=== PATIENT | male | born 1965 | race American Indian/Alaskan Native ===

== ENCOUNTER 2017-04-02 18:57 | Emergency (ER) | payer BC ==
[2017-04-02 19:23] VITALS: BP 140/100; PULSE 86; TEMP 97.9; BMI 26.2
--- NOTE | 2017-04-02 19:27 | PDOC ---
Rapid Medical Evaluation Chief Complaint: Pain Time Seen by Provider: 04/02/17 19:20 Medical Evaluation: Allergies Allergy/AdvReac Type Severity Reaction Status Date / Time No Known Allergies Allergy Verified 03/04/13 12:17 04/02/17 19:21 Pt presents with complaint of : Send by Dr. lara right inguinal pain r/o hernia vs incarceration PMhx: HTN, Diabetes On brief exam:VSS, patient alert ox3. no abdominal tenderness I have ordered the following: cbc, cmp, type and screen, u/s Pt will go to the Emergency Dept for further workup 04/02/17 19:26
[2017-04-02 20:13] LABS: BASOPHIL 1.3 % (0-2.0); EOSINOPHIL 2.6 % (0-4.5); MCH 29.6 pg (25.7-33.7); MCHC 33.7 g/dl (32.0-35.9); MEAN CELL VOLUME 87.9 fl (80-96); MEAN PLT VOLUME 7.8 fl (7.5-11.1); PLATELET COUNT 278 K/MM3 (134-434); RDW 13.1 % (11.9-15.9); WHITE BLOOD COUNT 9.2 K/mm3 (4.0-10.0)
[2017-04-02 20:16] LABS: URINE APPEARANCE CLEAR; URINE BILIRUBIN NEGATIVE (NEGATIVE); URINE BLOOD NEGATIVE (NEGATIVE); URINE COLOR STRAW; URINE GLUCOSE (UA) NEGATIVE (NEGATIVE); URINE KETONE NEGATIVE (NEGATIVE); URINE NITRITE NEGATIVE (NEGATIVE); URINE UROBILINOGEN NEGATIVE mg/dL (0.2-1.0)
[2017-04-02 20:39] LABS: ALBUMIN 4.3 g/dl (3.4-5.0); ALK PHOS 99 U/L (45-117); ANION GAP 6 (8-16); BILIRUBIN,TOTAL 0.5 mg/dL (0.2-1.0); CALCIUM 9.2 mg/dL (8.5-10.1); CO2 29 mmol/L (21-32); CREATININE 0.9 mg/dL (0.7-1.3); GLUCOSE,RANDOM 144 mg/dL (74-106); SGOT/AST 23 U/L (15-37); SGPT/ALT 59 U/L (12-78); TOT PROT 7.9 g/dl (6.4-8.2)
[2017-04-02 20:46] LABS: URINE PROTEIN 1+ (NEGATIVE)
[2017-04-02 20:50] LABS: URINE RBC <1 /hpf (0-3); URINE WBC <1 /hpf (3-5)
--- NOTE | 2017-04-02 23:41 | PDOC ---
History of Present Illness <Eden Cooper - Last Filed: 04/03/17 00:36> - History of Present Illness Initial Comments: 04/03/17 00:20 51 M with h/o DM presents to ER with R groin pain x 5 days. Pt denies N/V/D. Denies F/C. States that the pain is constant, non-radiating. Pt denies surgical history. Denies pain in his scrotum. Has been taking PO without any abdominal distention. Having normal BMs. No dysuria. Pt was seen by Dr. Barnhart and sent to ER to r/o incarcerated hernia. <Akbar Alvarado - Last Filed: 04/03/17 01:06> - General Chief Complaint: Pain Stated Complaint: PCP SENT Time Seen by Provider: 04/02/17 19:20 Past History <Eden Cooper - Last Filed: 04/03/17 00:36> - Past Medical History COPD: No Diabetes: Yes GI Disorders: Yes (GAS) HTN: Yes - Suicide/Smoking/Psychosocial Hx Smoking Status: No Smoking History: Never smoked Have you smoked in the past 12 months: No Number of Cigarettes Smoked Daily: 0 Information on smoking cessation initiated: No Hx Alcohol Use: No Drug/Substance Use Hx: No <Akbar Alvarado - Last Filed: 04/03/17 01:06> - Past Medical History Allergies/Adverse Reactions: Allergies Allergy/AdvReac Type Severity Reaction Status Date / Time No Known Allergies Allergy Verified 04/02/17 21:11 Home Medications: Ambulatory Orders Losartan Potassium 50 mg PO DAILY 03/04/13 Metformin HCl [Glucophage -] 500 mg PO BID 03/04/13 Amlodipine Besylate [Norvasc -] 5 mg PO DAILY 04/02/17 Glipizide [Glipizide ER] 5 mg PO DAILY 04/02/17 Review of Systems - Review of Systems Comments:: 04/03/17 00:22 "GENERAL/CONSTITUTIONAL: No fever or chills. No weakness. HEAD, EYES, EARS, NOSE AND THROAT: No change in vision. No ear pain or discharge. No sore throat. CARDIOVASCULAR: No chest pain or shortness of breath. RESPIRATORY: No cough, wheezing, or hemoptysis. GASTROINTESTINAL: No nausea, vomiting, diarrhea or constipation. GENITOURINARY: +R groin pain, No dysuria, frequency, or change in urination. MUSCULOSKELETAL: No joint or muscle swelling or pain. No neck or back pain. SKIN: No rash NEUROLOGIC: No headache, vertigo, loss of consciousness, or change in strength/ sensation. ENDOCRINE: No increased thirst. No abnormal weight change. HEMATOLOGIC/LYMPHATIC: No anemia, easy bleeding, or history of blood clots. ALLERGIC/IMMUNOLOGIC: No hives or skin allergy. " <OuAkbar - Last Filed: 04/03/17 01:06> *Physical Exam - Vital Signs Last Vital Signs Temp Pulse Resp BP Pulse Ox 97.9 F 86 17 140/100 100 04/02/17 19:21 04/02/17 19:21 04/02/17 19:21 04/02/17 19:21 04/02/17 19:21 <Cooper,Giomilsy - Last Filed: 04/03/17 00:36> - Vital Signs Last Vital Signs Temp Pulse Resp BP Pulse Ox 97.9 F 86 17 140/100 100 04/02/17 19:21 04/02/17 19:21 04/02/17 19:21 04/02/17 19:21 04/02/17 19:21 - Physical Exam Comments: 04/03/17 00:22 "GENERAL: Awake, alert, and fully oriented, in no acute distress HEAD: No signs of trauma EYES: PERRLA, EOMI, sclera anicteric, conjunctiva clear ENT: Auricles normal inspection, hearing grossly normal, nares patent, oropharynx clear without exudates. Moist mucosa NECK: Nontender, no stepoffs, Normal ROM, supple, no lymphadenopathy, JVD, or masses LUNGS: Breath sounds equal, clear to auscultation bilaterally. No wheezes, and no crackles HEART: Regular rate and rhythm, normal S1 and S2, no murmurs, rubs or gallops ABDOMEN: Soft, nontender, normoactive bowel sounds. No guarding, no rebound. No masses : R groin tenderness, with no palpable masses, scrotum wnl EXTREMITIES: Normal range of motion, no edema. No clubbing or cyanosis. No cords, erythema, or tenderness NEUROLOGICAL: Cranial nerves II through XII intact. 5/5 strength and sensation in all extremities, Normal speech, normal gait SKIN: Warm, Dry, normal turgor, no rashes or lesions noted. " <Akbar Alvarado - Last Filed: 04/03/17 01:06> ED Treatment Course - LABORATORY CBC & Chemistry Diagram: 04/02/17 20:00 04/02/17 20:00 - ADDITIONAL ORDERS Additional order review: Laboratory Results 04/02/17 04/02/17 04/02/17 21:00 20:00 20:00 Sodium 137 Potassium 4.4 Chloride 102 Carbon Dioxide 29 Anion Gap 6 L BUN 11 Creatinine 0.9 D Creat Clearance w eGFR > 60 Random Glucose 144 H D Calcium 9.2 Total Bilirubin 0.5 D AST 23 ALT 59 Alkaline Phosphatase 99 D Total Protein 7.9 Albumin 4.3 Lipase 158 Urine Color Straw Urine Appearance Clear Urine pH 7.0 D Ur Specific [place] 1.010 Urine Protein 1+ H Urine Glucose (UA) Negative Urine Ketones Negative Urine Blood Negative Urine Nitrite Negative Urine Bilirubin Negative Urine Urobilinogen Negative Urine WBC (Auto) <1 Urine RBC (Auto) <1 Blood Type A POSITIVE Antibody Screen Negative 04/02/17 20:00 RBC 5.11 MCV 87.9 MCHC 33.7 RDW 13.1 MPV 7.8 Neutrophils % 55.0 Lymphocytes % 33.1 D Monocytes % 8.0 Eosinophils % 2.6 Basophils % 1.3 - RADIOLOGY Radiograph Interpretation: 04/03/17 00:36 EXAM: CT Abdomen and Pelvis INTERPRETED BY: Dr. Garcia REVIEWED BY: Dr. Alvarado IMPRESSION: 1. No evidence of abdominal wall hernia or intestinal obstruction. Normal appendix. 2. Hepatic steatosis. A 1.8 x 1.8 cm indeterminant hyper enhancing lesion in the left hepatic lobe , as described above is nonspecific with a broad differential, including benign and malignant lesions. Complete characterization requires nonemergent, outpatient multiphase contrast-enhanced MRI or CT of the liver. 3. Nodularity in the left adrenal gland measuring 1.3 x 0.8 cm is unchanged from 03/04/2013, likely an adenoma. 4. 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 Please correlate clinically for underlying seronegative spondyloarthropathy. <Eden Cooper - Last Filed: 04/03/17 00:36> - LABORATORY CBC & Chemistry Diagram: 04/02/17 20:00 04/02/17 20:00 - ADDITIONAL ORDERS Additional order review: Laboratory Results 04/02/17 04/02/17 04/02/17 21:00 20:00 20:00 Sodium 137 Potassium 4.4 Chloride 102 Carbon Dioxide 29 Anion Gap 6 L BUN 11 Creatinine 0.9 D Creat Clearance w eGFR > 60 Random Glucose 144 H D Calcium 9.2 Total Bilirubin 0.5 D AST 23 ALT 59 Alkaline Phosphatase 99 D Total Protein 7.9 Albumin 4.3 Lipase 158 Urine Color Straw Urine Appearance Clear Urine pH 7.0 D Ur Specific [place] 1.010 Urine Protein 1+ H Urine Glucose (UA) Negative Urine Ketones Negative Urine Blood Negative Urine Nitrite Negative Urine Bilirubin Negative Urine Urobilinogen Negative Urine WBC (Auto) <1 Urine RBC (Auto) <1 Blood Type A POSITIVE Antibody Screen Negative 04/02/17 20:00 RBC 5.11 MCV 87.9 MCHC 33.7 RDW 13.1 MPV 7.8 Neutrophils % 55.0 Lymphocytes % 33.1 D Monocytes % 8.0 Eosinophils % 2.6 Basophils % 1.3 - RADIOLOGY Radiology Studies Ordered: Category Date Time Status ABDOMEN & PELVIS CT WITH CONTR [CT] Stat CT Scan 04/02/17 21:06 Taken <Akbar Alvarado - Last Filed: 04/03/17 01:06> Medical Decision Making - Medical Decision Making 04/03/17 00:22 51 M with R groin pain. Possible hernia. - Labs - Pelvis US - CTAP - Dr. Barnhart following 04/03/17 01:03 CBC,CMP WBC 9.2 K/mm3 (4.0-10.0) 04/02/17 20:00 RBC 5.11 M/mm3 (4.00-5.60) 04/02/17 20:00 Hgb 15.1 GM/dL (11.7-16.9) 04/02/17 20:00 Hct 44.9 % (35.4-49) 04/02/17 20:00 MCV 87.9 fl (80-96) 04/02/17 20:00 MCH 29.6 pg (25.7-33.7) 04/02/17 20:00 MCHC 33.7 g/dl (32.0-35.9) 04/02/17 20:00 RDW 13.1 % (11.9-15.9) 04/02/17 20:00 Plt Count 278 K/MM3 (134-434) D 04/02/17 20:00 MPV 7.8 fl (7.5-11.1) 04/02/17 20:00 Neutrophils % 55.0 % (42.8-82.8) 04/02/17 20:00 Lymphocytes % 33.1 % (8-40) D 04/02/17 20:00 Monocytes % 8.0 % (3.8-10.2) 04/02/17 20:00 Eosinophils % 2.6 % (0-4.5) 04/02/17 20:00 Basophils % 1.3 % (0-2.0) 04/02/17 20:00 Sodium 137 mmol/L (136-145) 04/02/17 20:00 Potassium 4.4 mmol/L (3.5-5.1) 04/02/17 20:00 Chloride 102 mmol/L (98-107) 04/02/17 20:00 Carbon Dioxide 29 mmol/L (21-32) 04/02/17 20:00 Anion Gap 6 (8-16) L 04/02/17 20:00 BUN 11 mg/dL (7-18) 04/02/17 20:00 Creatinine 0.9 mg/dL (0.7-1.3) D 04/02/17 20:00 Creat Clearance w eGFR > 60 (>60) 04/02/17 20:00 Random Glucose 144 mg/dL (74-106) H D 04/02/17 20:00 Calcium 9.2 mg/dL (8.5-10.1) 04/02/17 20:00 Total Bilirubin 0.5 mg/dL (0.2-1.0) D 04/02/17 20:00 AST 23 U/L (15-37) 04/02/17 20:00 ALT 59 U/L (12-78) 04/02/17 20:00 Alkaline Phosphatase 99 U/L (45-117) D 04/02/17 20:00 Total Protein 7.9 g/dl (6.4-8.2) 04/02/17 20:00 Albumin 4.3 g/dl (3.4-5.0) 04/02/17 20:00 Lipase 158 U/L (73-393) 04/02/17 20:00 CT with no evidence of hernia. Pt with minimal pain on exam. Tolerating PO. Well appearing with normal vitals. Labs unremarkable. Spoke with Dr. Barnhart, who agrees with plan to DC and f/u in clinic. <Akbar Alvarado - Last Filed: 04/03/17 01:06> *DC/Admit/Observation/Transfer - Attestations Scribe Attestion: 04/03/17 00:37 Documentation prepared by Eden Cooper, acting as biomedical engineering supervisor for Akbar Alvarado MD. <Eden Cooper - Last Filed: 04/03/17 00:36> - Attestations Physician Attestion: 04/03/17 01:05 I, Dr. Akbar Alvarado MD, attest that this document has been prepared under my direction and personally reviewed by me in its entirety. I further attest, that it accurately reflects all work, treatment, procedures and medical decision -making performed by me. <Akbar Alvarado - Last Filed: 04/03/17 01:06> Diagnosis at time of Disposition: Groin pain - Discharge Dispostion Disposition: HOME - Referrals Referrals: Arline Macdonald MD [Primary Care Provider] - Paty Barnhart MD [Staff Physician] - - Patient Instructions Printed Discharge Instructions: DI for Abdominal Pain-Adult Additional Instructions: Follow up with Dr. Barnhart in clinic this week. Call the number provided to make an appointment. On your CT scan today, we found a lesion on your liver that is likely harmless, but there is a small chance it may represent cancer. Please follow up with your primary doctor regarding this so that they can perform repeat imaging and possibly a biopsy. If you experience worsening pain, nausea, vomiting, fevers, or any other concerning symptoms, return to the ER immediately. - Post Discharge Activity Forms/Work/School Notes: Back to Work
--- NOTE | 2017-04-03 10:04 | EKG ---
Test Reason : Blood Pressure : / mmHG Vent. Rate : 067 BPM Atrial Rate : 067 BPM P-R Int : 142 ms QRS Dur : 080 ms QT Int : 368 ms P-R-T Axes : 037 031 038 degrees QTc Int : 388 ms NORMAL SINUS RHYTHM NONSPECIFIC T WAVE ABNORMALITY ABNORMAL ECG WHEN COMPARED WITH ECG OF 30-APR-1999 08:59, NO SIGNIFICANT CHANGE WAS FOUND Confirmed by RYAN LANIER MD ([id number]) on 04/03/2017 10:04:00 AM Referred By: Confirmed By:RYAN LANIER MD
[2017-04-03 13:03] LABS: URINE LEUK ESTERASE Negative (NEGATIVE)
== END 2017-04-03 01:22 | disposition home or self-care (01) ==
LOC: JER 18:57
DX: R10.31 Right lower quadrant pain (principal); E11.9 Type 2 diabetes mellitus without complications; Z79.84 Long term (current) use of oral hypoglycemic drugs; I10 Essential (primary) hypertension
CPT/HCPCS: 36415; 74177-TC; 76856-TC; 80053; 81003; 81015; 83690; 85025; 86850; 86900; 86901; 93005; 93010; 99282-25

== ENCOUNTER 2018-05-07 09:45 | Day surgery (SDC) | payer BC ==
[2018-05-03 15:53] VITALS: BMI 25.7
[~2018-05-07 09:45] MED LIST: LACTATED RINGERS SOLUTION 1,000 ML IV SCH; ONDANSETRON 4 MG/2 ML VIAL IVPUSH PRN; oxyCODONE HCL 5 MG TABLET PO PRN
[2018-05-07] MEDS ORDERED: BENZOIN TINCTURE SWABSTICK TP ONE (10:07)
[2018-05-07] MEDS ORDERED: BUPIVACAINE HCL/PF 0.5% (5MG/ML) 10 ML VIAL ONE (10:07)
[2018-05-07] MEDS ORDERED: LIDOCAINE HCL 1%, 10 MG/ML (20ML VIAL) ONE (10:07)
--- NOTE | 2018-05-07 10:54 | HP ---
History & Physical Update - History History: No Change Currently as noted:: from H&P 04/14/18 - Physical Physical: No Change - Assessment Assessment: No Change Currently as noted:: right inguinal hernia - Plan Plan: No Change Currently as noted:: for right inguinal hernia repair with mesh
[2018-05-07] MEDS ORDERED: ceFAZolin SODIUM 1 GM VIAL IVPB ONE (11:11)
[2018-05-07] MEDS ORDERED: LIDOCAINE HCL 1%, 10 MG/ML (20ML VIAL) NR ONE ×2 (12:13)
[2018-05-07] MEDS ORDERED: BUPIVACAINE HCL/PF 0.5% (5MG/ML) 10 ML VIAL IJ ONE ×2 (12:14)
--- NOTE | 2018-05-07 12:43 | OP ---
Operative Note - Note: Operative Date: 05/07/18 Pre-Operative Diagnosis: right inguinal hernia Operation: right inguinal hernia repair with mesh Findings: right direct inguinal hernia, no indirect sac identified Implants: Bard 2x4" flat mesh used for repair with lateral opening for cord Post-Operative Diagnosis: Other (right direct inguinal hernia) Surgeon: Isidoro Hernandez Telecommunications Switch Technician: Uziel Valentino Anesthesiologist/RENEWABLE ENERGY PROJECT MANAGER: Vega Cantu (kerwin/Maeve) Anesthesia: General, Local (10ml 1% lidocaine + 0.5% marcaine; also preop LUIS block by anesthesia) Estimated Blood Loss (mls): 2 Fluid Volume Replaced (mls): 1,000 (crystalloid) Operative Report Dictated: Yes
[2018-05-07] MEDS ORDERED: oxyCODONE HCL 5 MG TABLET PO PRN (12:47)
[2018-05-07 14:32] VITALS: TEMP 97.9
[2018-05-07] MEDS ORDERED: ACETAMINOPHEN 1000 MG/100 ML VIAL (NON FORMULARY) IVPB ONE ×2 (15:00)
[2018-05-07] MEDS ORDERED: ACETAMINOPHEN INJECTION 100 ML IVPB ONE (15:04)
[2018-05-07 16:36] VITALS: BP 122/60; PULSE 85
--- NOTE | 2018-05-07 19:00 | OP ---
DATE OF OPERATION: 05/07/2018 PREOPERATIVE DIAGNOSIS: Right inguinal hernia. POSTOPERATIVE DIAGNOSIS: Right direct inguinal hernia. PROCEDURE: Right inguinal hernia repair with mesh. SURGEON: Isidoro Hernandez M.D. FIBERGLASS DOWEL DRAWING OPERATOR: Uziel Valentino M.D. ANESTHESIA: General endotracheal anesthesia and local 10 mL of 1% lidocaine plus 0.5% Marcaine. Patient also had a preoperative TAP block by anesthesia. ESTIMATED BLOOD LOSS: 2 mL FLUIDS: 1 L of crystalloid FINDINGS: Right direct inguinal hernia. No indirect sac was identified. A Bard 2 x 4 inch flap mesh was used to repair with the lateral opening for the cord. DISPOSITION: Stable and extubate to PACU. INDICATION FOR PROCEDURE: Patient is a 52-year-old [place] male with a history of hypertension and diabetes and no abdominal surgery who was seen in the surgical clinic with complaints of right groin pain intermittently, who was noted to have an impulse in the right inguinal canal with Valsalva consistent with a small inguinal hernia which was likely reducible. He also had an extremely small impulse on the left but was asymptomatic on that side. Risks, benefits, and alternatives of right inguinal hernia repair with mesh were discussed with the patient including but not limited to bleeding, infection, injury to adjacent structures including the spermatic cord and testicular vessels as well as vessel and nerve injury, recurrent hernia, temporary or chronic pain or numbness, and the potential for loss of a testicle. Alternatives including no surgery were also discussed. Risks of doing so included progression of the hernia with increase in pain, potential for enlargement of the hernia and incarceration of the contents. The patient decided to proceed with an operation, signed informed consent for the same and presents as an outpatient for this operation today. OPERATIVE TECHNIQUE: The patient was brought to the operating room and laid supine on the operating table. Sequential compression devices were applied to bilateral lower extremities and 1 g Ancef was used as preoperative antibiotic. After induction and intubation by anesthesia, as the patient's right groin area had already been clipped of hair in the holding area, the right groin was prepped and draped in sterile fashion. The anterior-superior iliac spine and the right pubic tubercle were marked and an incision made in the right groin obliquely from the other tubercle towards the spine with the scalpel and carried to subcutaneous tissue with electrocautery until the external oblique fascia was identified and cleared bluntly on its surface. A self-retaining retractor was placed, and the external oblique fascia was nicked with the scalpel and opened in the direction of the fibers towards the external ring with Metzenbaum scissors and also for a short distance superiorly. The leaves of the external oblique were clamped and elevated, and the undersides cleared bluntly with gauze pad on the lateral edge; just underneath the external oblique fascia a small nerve was encountered which was ultimately sacrificed to avoid entrapping in the mesh; clearing the external oblique inside surface revealed the inguinal ligament on the lateral side and the lateral edge of the rectus on the medial side. The pubic tubercle was cleared bluntly utilizing peanut until the cord structures could be encircled entirely and raised off the tubercle bluntly with a [place] drain. fibers were then also divided with electrocautery. Hemostasis was achieved with electrocautery as needed throughout the case, although blood loss was quite minimal. With the cord elevated, dissection was carefully undertaken to look for an indirect sac adjacent to the cord structures, although a small cord lipoma was identified, no actual indirect sac was ever clearly identified and the internal ring was palpable and with Valsalva from anesthesia, again no sac was seen to come up from this area. So there was weakness of the inguinal floor, indicating a direct hernia. Thus, a 2 x 4 inch flap Bard mesh was selected for reinforcement of the inguinal floor with 3 corners trimmed off. This was placed into position with the superior end tucked underneath the leaves of the external oblique and the inferior lateral corner tacked to the right pubic tubercle with 2-0 Prolene suture. The mesh was then secured in place along the lateral side to the inguinal ligament with interrupted 2-0 Prolene sutures, leaving a small space for the cord to exit laterally. The medial side of the mesh was then secured to the lateral edge of the rectus muscle along the medial edge, and again the superior tail tucked under the external oblique fascia. Irrigation was performed after placement of the mesh. The field was cleared of fluid. Hemostasis was noted to be complete. The external oblique fascia was then reapproximated with a running 2-0 Vicryl suture starting superiorly and ending down to the level of the cord to recreate the external ring. The Mina fascia was then reapproximated with 3-0 Vicryl sutures, and a single 3-0 Vicryl subdermal suture was taken in the middle aspect of the incision to reapproximate the subcutaneous tissues before skin was closed with halina after irrigating one more time. Local anesthetic was infiltrated into the incision, and a small ilioinguinal block also placed just prior to the final skin closure with local anesthetic and dressing of 4x4s and Tegaderm was placed over the halian. Counts were correct at the end of the procedure. The patient's testicles were brought down and insured to be in the scrotum bilaterally at the conclusion of the procedure. The patient was then awakened and extubated by anesthesia, moved back to the stretcher and taken to the recovery room in stable condition having tolerated the procedure well. Dr. Valentino was an essential assistant chief engineer throughout the procedure from assisting with initial entry into the inguinal canal, helping with retraction throughout the procedure, and positioning of the mesh, as well as helping with closure of the wound. Isidoro Hernandez M.D. [id number]
== END 2018-05-07 16:05 | disposition home or self-care (01) ==
LOC: JASU-SURG 09:45
PROVIDERS: ATTEND Surgery
PROC: 0YU50JZ Supplement Right Inguinal Region with Synthetic Substitute, Open Approach (ICD-10-PCS; principal; 2018-05-07 11:00)
DX: K40.90 Unilateral inguinal hernia, without obstruction or gangrene, not specified as recurrent (principal); E11.9 Type 2 diabetes mellitus without complications; Z79.84 Long term (current) use of oral hypoglycemic drugs; I10 Essential (primary) hypertension
CPT/HCPCS: 82962; 94760; J0131